=== PATIENT | male | born 1950 | race Hispanic/Latino ===

== ENCOUNTER 2016-11-01 05:37 | Day surgery (SDC) | payer MEDICARE, MEDICAID ==
--- NOTE | 2016-10-28 13:15 | PCM.ANEPRE ---
Anesthesia Pre-Op Review Reason for Review: multi co morbids- CKD stage 5, echo 45% Anesthesia Recommendations: Proceed with Procedure Duong Talbert MD Oct 28, 2016 13:15
[~2016-11-01] VITALS: Ht 165.1 cm; Wt 68.1 kg
[~2016-11-01 05:37] MED LIST: AMLO5TAB2 PO; ASPI81TA3 PO; BISA-67 PO; BRIM5DRO10 LEFT_EYE; CALC0.257 PO; CALCIUM CARBONATE 1250 MG PO; CARV25TA2 PO; CLOP75TA28 PO; CYAN500 PO; DARB150D SUBQ; DORZ10DR20 LEFT_EYE; GLUC1VIA4 IM; INSLIS SUBQ; INSU100C11 SUBQ; INSU100I13 SUBQ; LATA2.5D6 LEFT_EYE; Lactated Ringer's 1,000 ML IV SCH; MIRT15TA6 PO; POLY1DRO LEFT_EYE; PRD5T PO; PRED5DRO6 LEFT_EYE; SIMV20TA4 PO; TAMS0.4C29 PO
[2016-11-01] MEDS ORDERED: EPHEDrine/NS 5 mg/mL 5 mL Syringe ONE (05:38)
[2016-11-01] MEDS ORDERED: Propofol 10,000 mCg/mL 20 mL Inj ONE (05:38)
[2016-11-01] MEDS ORDERED: MetoCLOpramide 5 mg/mL 2 mL Inj ONE (05:38)
[2016-11-01] MEDS ORDERED: 0.9% Sodium Chloride 500 ML IV ONE (05:38)
[2016-11-01] MEDS ORDERED: Dexamethasone 4 mg/mL Inj ONE (05:38)
[2016-11-01] MEDS ORDERED: Phenylephrine/NS 100 mCg/mL 10 mL Syringe IVPUSH ONE (05:38)
[2016-11-01] MEDS ORDERED: Ondansetron 2 mg/mL 2 mL Inj ONE (05:38)
[2016-11-01] MEDS ORDERED: CeFAZolin Inj 2 GM in IV Premix 1 EACH IV ONE (06:00)
[2016-11-01 06:15] VITALS: BP 139/60; PULSE 61; RESP 16; O2SAT 100
--- NOTE | 2016-11-01 07:25 | PCM.HPANE ---
Patient Data Date of Service: Nov 01, 2016 Surgeon Admitting Provider: Attending Provider:Tony Walters MD Primary Care Physician:Rd Pelayo MD Other Provider:Ron Valencia Anesthesia Reason for Visit Large B-Cell Lymphoma Ht/WT & BMI Height (Feet): 5 Height (Inches): 5.00 Weight (Kilograms): 68.1 Body Mass Index 25.00 Allergies Coded Allergies: Contrast Media (Verified Adverse Reaction, Unknown, 10/28/16) Per Nephrology MD for Kidney Transplant- pt has no reaction Past Anesthesia History Anesthesia History: Denies:: Anesthesia Reactions, Fam Anesthesia Reaction, Fam Malignant Hypertherm, Malignant Hyperthermia Diabetes History Hx Diabetes?: Yes Glycemic Control: Insulin Dependent Current Bedside Blood Glucose: 168 MRSA MRSA: No Medications Blood Thinner: Aspirin, Plavix Last Dose Blood Thinner: Oct 27, 2016 Hypertension Medication: Yes Home Meds Incl Beta Rhonda: Yes (Carvedilol 25mg) Date Beta Rhonda Taken: Nov 01, 2016 Time Beta Rhonda Taken: 0500 Active Scripts Aspirin Chew 81 Mg Chew81 Mg PO DAILY 30 Days Ref 0 Prov:Kat Meyers MD 07/24/15 Amlodipine 5 Mg Tablet5 Mg PO BID 30 Days Ref 0 Prov:Kat Meyers MD 07/24/15 Reported Medications Mirtazapine 15 Mg Zhlurx73 Mg PO HS Ref 0 10/02/16 Polyvinyl Alcohol/Povidone/Pf (Refresh Classic Eye Drops)1 Each Droperette1-2 Drop LEFT_EYE PRN . 1.4% 10/11/15 Glucagon HCl 1 Mg Vial1 Mg IM Hypoglycemia 10/11/15 [calcium carb 1,250mg] No Conflict Check2,500 Mg PO HS 10/11/15 Insulin Lispro (HumaLOG U100 Insulin Cartridge Refill)100 Unit/1 Ml Cartridge0- 5 Unit SUBQ QID #1 PKG Ref 0 With meals and nightly Blood Sugar Lispro Correction <151 0 units 151-175 1 unit 176-200 2 units 201-225 3 units 226-250 4 units 251-275 5 units 276-300 6 units 301-325 7 units 326-350 8 units 351-375 9 units 376-400 10 units >400 12 units Check blood sugars before meals and at bedtime. Use correction factor only before meals. 10/11/15 Tamsulosin ER 0.4 Mg Cap.er.24h0.8 Mg PO DAILY #180 10/11/15 Cyanocobalamin (Vitamin B12)500 Mcg Tablet1,000 Mcg PO DAILY 10/11/15 Insulin Human Lispro (HumaLOG U100 Insulin Vial)100 Unit/Ml Unit2 Unit SUBQ TIDWM #1 VIAL Ref 0 07/19/15 Calcitriol (Rocaltrol)0.25 Mcg Capsule0.25 Mcg PO mon, wed, fri07/19/15 Bisacodyl (Dulcolax)5 Mg Tablet.dr5-10 Mg PO DAILY PRN For Constipation Ref 0 07/19/15 Latanoprost 2.5 Ml Drops1 Gtt LEFT_EYE HS #1 BOTTLE 0.005% 07/19/15 Dorzolamide HCl/Timolol Maleat (Dorzolamide-Timolol Eye Drops)10 Ml Drops1 Gtt LEFT_EYE BID #1 BOTTLE 07/19/15 Prednisolone Acetate 5 Ml Drops.susp1 Drp LEFT_EYE DAILY 1% Ophthalmic suspension 07/19/15 Brimonidine Tartrate (Alphagan P)5 Ml Drops1 Drp LEFT_EYE BID 07/19/15 Clopidogrel 75 Mg Uflzrc95 Mg PO DAILY 30 Days Ref 0 03/08/14 Insulin Glargine (Lantus U100 Solostar Insulin Pen)100 Unit/1 Ml Insuln.pen4 Unit SUBQ BID #1 PENINJ Ref 0 02/15/14 Prednisone (PredniSONE)5 Mg Tab5 Mg PO DAILY Ref 0 02/15/14 Simvastatin 20 Mg Bibcod54 Mg PO HS 30 Days Ref 0 02/15/14 Carvedilol 25 Mg Liooic49 Mg PO BID 30 Days Ref 0 02/15/14 Darbepoetin Daniel in Polysorbat (Aranesp)150 Mcg/0.3 Ml Luqvwek592 Mcg SUBQ every 4 weeks 02/15/14 History History of ENT Problems?: No HEENT History: Positive for:: Abnormal Airway Dysphagia (after CVA) Denies:: Cataracts Hearing Problem Sinus Problem Denture Type: None Teeth Condition: Broken Teeth Tooth Decay Missing Teeth Other HEENT Pertinent History: 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, R neck mass Hx of Heart Problems?: Yes Cardiovascular History: Positive for:: Edema (RLE chronic) Hypertension Peripheral Vascular (past hx foot ulcerations) Denies:: Cardiac Surgery Chest Pain Congestive Heart Failure Heart Murmur Irregular Heartbeat Pacemaker Thrombophlebitis Valvular Heart Disease (echo 2016 ef 45%) Other Cardiac History: conduction defect noted on TTE Hx of Respiratory Problem?: Yes Respiratory History: Denies:: Asthma COPD Chest Surgery Dyspnea (denies dyspnea despite neck mass - CT shows no compromise of airway from mass; glottic narrowing to 4mm not contributing either) Emphysema Hemoptysis Oxygen Administration Pneumonia Tuberculosis Use of C-PAP Machine Hx Neurologic Problems?: Yes Neurological History: Positive for:: 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 (antirejection medication caused small facial rash) Pressure Ulcers Hx Musculoskeletal Problems?: No Musculoskeletal History: Denies:: Joint Replacement Musculoskeletal Trauma Myasthenia Gravis Hx of Psycho/Social Problems?: No Hx Surgeries?: Yes (KIDNEY TRANSPLANT 1998) Hx Any Other Health Problems?: Yes Other History: Positive for:: Cancer (large B cell lymphoma) Endocrine Disease Hospitalization (CVA 2016) Denies:: Thyroid Disease History Blood Transfusions: Positive for:: Blood Transfusions Denies:: Blood Transfuse Reaction Hx Diabetes: YesBedside Blood Glucose: 168 Hx Alcohol Use: NoHx Substance Use: No Smoking Status: Never Smoker Have You Smoked inLast 12 mo: No Stop/Bang Treated for Sleep Apnea?: No Do You Have a CPAP Machine?: No S-Snoring: Do You Snore Loudly: No T-Tired: feel tired, fatigued: No O-Obsered: Observed not breath: No P-Blood Pressure: treated: Yes B- Body Mass Index > 35 kg/m2: No A- Age over 50: Yes N- Neck Large Circumference: No G- Gender Male: Yes DONY Total Score: 3 DONY Risk Assessment: Low Risk, <3 Yes Risk Assessment Category Category 1A: Patient has history of documented sleep apnea, and HAS NOT received any narcotic, sedative or anesthesia administration during this stay. Category 1B: Patient has history of documented sleep apnea, and HAS received any narcotic , sedative or anesthesia administration during this stay Category 2: Patient has SUSPECTED Obstructive Sleep Apnea, and HAS received any narcotic , sedative or anesthesia administration during this stay. Category 3: Patient has SUSPECTED Obstructive Sleep Apnea and HAS NOT received narcotic, sedative or anesthesia administration during this stay. Category 4: Outpatient in Procedural Areas with known sleep apnea or who screen positive for High Risk via the STOP/BANG questionnaire. Exam Exam Vital Signs Vital Signs Date Time Temp Pulse Resp B/P Pulse Ox O2 Delivery O2 Flow Rate FiO2 11/01/16 06:15 36.0 61 16 139/60 100 Room Air General Appearance: Alert, Oriented X3, Cooperative, No Acute Distress HEENT/AIRWAY: MP 3, Neck Movement (from, short thick neck, significant mass R- side of neck), Mouth Opening (3), Other (tmd<3) Lungs: Diminished Heart: Regular Rate/Rhythm, Normal S1, Other (? split S2) Meds/Labs/Diagnostics Admission Meds Current Medications Sodium Chloride (Normal Saline) 500 ml @ ud STK-MED ONCE IV Last administered on 11/01/16t 05:38; Start 11/01/16 at 05:38; Stop 11/01/16 at 05:39; Status DC Bedside Blood Glucose: 168 Labs Test 11/01/16 06:[address] Neck 1. Severe diffuse right cervical lymphadenopathy some of which is centrally necrotic consistent with marked metastatic disease. 2. Marked symmetric narrowing of the airway with a residual lumen of 4 mm at the level of the vocal cords caused by redundancy of the false focal cords. No discrete mass is identified at this level. Additional Information TTE The left ventricle is mildly dilated. Left ventricular wall thickness is mild-moderately increased. Left ventricular ejection fraction is estimated to be 45%. There is a significant dyssynchronous contraction pattern, consistent with a conduction abnormality. The left atrium is severely dilated. Plan Impression Patient chart reviewed, patient interviewed and anesthestic plan with risks, benefits, and alternatives discussed, and informed consent obtained. NPO per Anesth. Guidelines: Yes ASA Physical Status: ASA4 Life Threatening Anesthetic Plan: GA, TIVA Bene/Risks/Altern/Consents: Yes HP Complete Prior to Induction: Yes Other Crashcart nearby with ability to transcutaneous pace due to pt's conduction delay and possible arrhythmia during placement of wire & catheter. Emergent cricothyrotomy considered with glottic narrowing, neck mass and possible complications arising during placement of "neck" line. Estrada Lomeli MD Nov 01, 2016 07:25
[2016-11-01] MEDS ORDERED: Bupivacaine-MPF 0.5% 30 mL Inj INFILTRATE ONE (07:34)
[2016-11-01] MEDS ORDERED: HepLOK Flush 100 unit/mL 5 mL Inj IVFLUSH ONE ×2 (07:34→09:11)
[2016-11-01] MEDS ORDERED: 0.9% Sodium Chloride 1,000 ML IV ONE (08:38)
[2016-11-01] MEDS ORDERED: 0.9% Sodium Chloride 250 ML IV PRN (09:14)
[2016-11-01] MEDS ORDERED: HYDROmorphone 1 mg/mL Inj IVPUSH PRN (09:15)
[2016-11-01] MEDS ORDERED: fentaNYL-PF 50 mCg/mL 2 mL Inj IVPUSH PRN (09:15)
[2016-11-01] MEDS ORDERED: EPHEDrine Sulfate 50 mg/mL Inj IVPUSH PRN (09:15)
[2016-11-01] MEDS ORDERED: Ondansetron 2 mg/mL 2 mL Inj IVPUSH PRN (09:15)
[2016-11-01] MEDS ORDERED: MetoCLOpramide 5 mg/mL 2 mL Inj IVPUSH PRN (09:15)
[2016-11-01] MEDS ORDERED: Phenylephrine 10,000 mCg/mL Inj IVPUSH PRN (09:15)
[2016-11-01] MEDS ORDERED: Dexamethasone 4 mg/mL Inj IVPUSH PRN (09:15)
[2016-11-01] MEDS ORDERED: oxyCODONE-Acetamin 5-325 mg Tablet PO PRN (09:30)
[2016-11-01 09:32] VITALS: BP 123/47; PULSE 58; RESP 16; O2SAT 100
--- NOTE | 2016-11-01 09:33 | PCM.DISURG ---
Surgical Discharge Instruction Date of Service Nov 01, 2016 Dates of Hospitalization Date of Hospital Admission Providers Admitting Physician: Primary Care Physician: Rd Pelayo MD Attending Physician: Tony Walters MD Diet Discharge Diet: No restrictions Activity Discharge Activity-General: No restrictions, Activity as pain allows, No driving while taking narcotic Dressing and Incisional Care Hygiene: May shower, DO NOT soak incision under water, NO bathtub, hot tub or whirlpool Additional Instructions Discharge Instructions Follow up with your oncologist. Call at any time with questions or concerns. Follow Up Plan Call your provider for: Fever, Chills, Increasing wound pain Chip Peterson MD Nov 01, 2016 09:33
[2016-11-01 09:40] VITALS: BP 122/45; PULSE 58; RESP 16; O2SAT 100
[2016-11-01 09:50] VITALS: BP 126/46; PULSE 59; RESP 17; O2SAT 93
[2016-11-01 10:02] VITALS: BP 114/44; PULSE 58; RESP 16; O2SAT 98
--- NOTE | 2016-11-01 10:43 | PCM.SURGPO ---
Immediate Operative Note Date of Surgery: Nov 01, 2016 Pre Operative Diagnosis Lymphoma Post Operative Diagnosis Lymphoma Procedure Right Internal Jugular Tunneled central venous catheter with subcutaneous port Surgeon and Jewel Hole Cornerer Surgeon: Tony Walters MD Assistants: Chip Peterson MD Findings Catheter flushing & aspirating well Complications There were no periprocedural complications identified. Surgical Specimen Removed: No Specimen sent to Pathology: No Anesthetic Administered: GA Grafts, Implants: Implants-See Implant Record Output, Estimated Blood Loss: 1 Blood Admin during surgery: No Attending Statement Top Executive listed was not medically necessary for the successful completion of the case Tony Walters MD Nov 01, 2016 10:43
--- NOTE | 2016-11-01 11:43 | PCM.ANEP1 ---
Post Anesthesia PACU Phase 1 Assessment Date of Service: Nov 01, 2016 Vital Signs Vital Signs Date Time Temp Pulse Resp B/P Pulse Ox O2 Delivery O2 Flow Rate FiO2 11/01/16 10:02 58 16 114/44 98 Room Air 11/01/16 09:50 59 17 126/46 93 Room Air 11/01/16 09:40 58 16 122/45 100 Simple Mask 8 11/01/16 09:32 36.2 58 16 123/47 100 Simple Mask 8 11/01/16 06:15 36.0 61 16 139/60 100 Room Air Anesthetic Administered: GA Level of Alertness: Awake, talking ENCARNACION's with Equal Strength: Yes Pain: No Pain Scale Score: 0 Nausea or Vomiting: No CV Function & Hydration Stable: Yes Airway Device: none Oxygen Delivery: Simple Mask Lungs: Diminished Summary 11/01/16 10:02 58 16 114/44 98 Room Air PACU Phase 2 Assessment Complications: No Follow up Care: N/A Patient Instructions Provided: N/A Estrada Lomeli MD Nov 01, 2016 11:43
--- NOTE | 2016-11-01 13:35 | OP ---
[address] [address] OPERATIVE REPORT PATIENT: MARY MARRERO : 1950 MR#: [id number] ADMIT: 11/01/2016 JOB ID: [id number] DATE OF SURGERY: 11/01/2016 PREOPERATIVE DIAGNOSIS(ES): Diffuse large B-cell lymphoma. POSTOPERATIVE DIAGNOSIS(ES): Diffuse large B-cell lymphoma. PROCEDURE PERFORMED: 1. Tunneled right internal jugular central venous catheter with subcutaneous port. 2. Intraoperative fluoroscopy and intraoperative ultrasound. SURGEON: Tony Walters MD. SUPERVISOR TYPESETTING: Chip Cesar. INDICATIONS: The patient is a 66-year-old gentleman who noticed an enlarging mass in the right neck two months before. It has continued to get bigger while he had no fever, night sweats, or weight loss. He was doing okay with swallowing and has not noted any problems with breathing. He had ultrasound-guided core biopsy and Dr. Roper sent him to me for port placement. He has been dialysis dependent for the last year after his kidney allograft failed and he has a well working left arm AV fistula. After discussing the risks, benefits, and alternatives, he is brought to the operating room today for port placement. PROCEDURE DETAILS: He was placed in a supine position. We 1st ultrasounded his right neck and found that his jugular vein is open and accessible. The neck and chest were prepped and draped in the usual sterile fashion. Surgical time-out was undertaken using safety checklist, and all were in agreement. I began by examining the jugular under ultrasound guidance and accessed it using micropuncture kit, using Seldinger technique. After that, I advanced a #38 wire that comes to the port and through the micropuncture introducer set and confirmed venous placement fluoroscopically. We then measured the required length of the catheter based on the wire outside the body and then made a pocket over the right pectoralis for the port. We then anchored the port in place and tunneled the catheter up to the neck puncture site and dilated the wire using introducer dilator. We anchored the port in place and then cut the catheter to required length and advanced it through the introducer sheath. When we tried to flush it at this point, initially we did not get a good return and when we checked fluoroscopically, the catheter tip appeared to enter the azygos. I then pulled back on the catheter and again aspirated it, and after removing the sutures one more time and it seemed to work well. At that point, we made the pocket a little bigger, extending inferiorly, and again secured it and the final position of the catheter looked good and it was flushing and aspirating well without any problems. At that point, we closed the wounds with 4-0 Monocryl, dressed it with Dermabond, and accessed the port and recovered the patient from anesthesia and took him to recovery room in stable condition.
== END 2016-11-01 23:59 | disposition home or self-care (01) ==
LOC: SAS 05:37
PROVIDERS: ATTEND Student in an Organized Health Care Education/Training Program
DX: C83.31 Diffuse large B-cell lymphoma, lymph nodes of head, face, and neck (principal); I12.0 Hypertensive chronic kidney disease with stage 5 chronic kidney disease or end stage renal disease; N18.6 End stage renal disease; E11.9 Type 2 diabetes mellitus without complications; E78.5 Hyperlipidemia, unspecified; I69.251 Hemiplegia and hemiparesis following other nontraumatic intracranial hemorrhage affecting right dominant side; N40.0 Benign prostatic hyperplasia without lower urinary tract symptoms; Z79.02 Long term (current) use of antithrombotics/antiplatelets; Z79.82 Long term (current) use of aspirin; Z79.4 Long term (current) use of insulin
CPT/HCPCS: 36415; 36561; 77001; 84132; C1788; C1894; J0690; J1100; J1642; J2250; J2370; J2405; J2765; J7030